=== PATIENT | male | born 2005 | race Caucasian/White ===

== ENCOUNTER 2023-12-02 08:52 | Outpatient (CLI) | payer OTHER | END 2023-12-03 08:53 | disposition home or self-care (01) | LOC: CSHSLEEP 08:52 | PROVIDERS: ATTEND Pediatrics | DX: G47.33 Obstructive sleep apnea (adult) (pediatric) (principal); R06.83 Snoring; R35.1 Nocturia; Q90.9 Down syndrome, unspecified | CPT/HCPCS: 95810 ==